=== PATIENT | female | born 1990 | race Caucasian/White ===

== ENCOUNTER 2018-01-11 18:45 | Emergency (ER) | payer SELFPAY ==
[2018-01-11] MEDS ORDERED: Adacel (T-DAP) 0.5 ML VIAL ONE (20:45)
[2018-01-11] MEDS ORDERED: Penicillin V Potassium 250 MG TAB ONE (20:45)
== END 2018-01-11 21:10 | disposition home or self-care (01) ==
LOC: MADERS 18:45
DX: S90.811A Abrasion, right foot, initial encounter (principal); K04.7 Periapical abscess without sinus; F17.200 Nicotine dependence, unspecified, uncomplicated; Y29.XXXA Contact with blunt object, undetermined intent, initial encounter
CPT/HCPCS: 90471; 90715